=== PATIENT | male | born 1950 | race Two or more races ===

== ENCOUNTER 2017-03-06 08:51 | Day surgery (SDC) | payer OTHER ==
[2017-03-05 14:45] VITALS: BMI 34.1
[2017-03-06 10:07] VITALS: TEMP 97.5
[2017-03-06 10:50] VITALS: BP 114/63; PULSE 82
--- NOTE | 2017-03-07 13:00 | PATH ---
Surgical Pathology Report Patient Name: CHELSEA SOLANO [facility]. Rec. #: [id number] /Age/Gender: 1950 (Age: 66) / M Account: [id number] Location: U-ENDOSCOPY Taken: 03/06/2017 Received: 03/06/2017 Reported: 03/07/2017 Physicians: Stephan Lin M.D. Specimen(s) Received A: RT COLON POLYP B: TRANSVERSE COLON POLYP Clinical History History of colon polyp Diverticulosis, polyp Final Diagnosis A. COLON, RIGHT, POLYP, POLYPECTOMY: CONSISTENT WITH INFLAMMATORY-TYPE POLYP. B. COLON, TRANSVERSE, POLYP, POLYPECTOMY: FRAGMENTS OF HYPERPLASTIC-TYPE POLYP WITH FOCAL FEATURES SUGGESTIVE OF SESSILE SERRATED ADENOMA. Electronically Signed Viktor Maldonado M.D. Gross Description A. Received in formalin, labeled "right colon polyp" is a levy, irregular portion of soft tissue measuring 0.1 cm in greatest dimension. The specimen is submitted in toto in one cassette. B. Received in formalin, labeled "polyp transverse colon" are 2 levy, irregular portions of soft tissue measuring 0.3 and 0.4 cm in greatest dimension. The specimens are submitted in toto in one cassette. 03/06/2017 saudi03/06/2017
== END 2017-03-06 10:50 | disposition home or self-care (01) ==
LOC: JASU-ENDO 08:51
PROVIDERS: ATTEND Internal Medicine Gastroenterology
PROC: 0DBL8ZX Excision of Transverse Colon, Via Natural or Artificial Opening Endoscopic, Diagnostic (ICD-10-PCS; 2017-03-06)
PROC: 0DBF8ZX Excision of Right Large Intestine, Via Natural or Artificial Opening Endoscopic, Diagnostic (ICD-10-PCS; principal; 2017-03-06 09:30)
DX: Z12.11 Encounter for screening for malignant neoplasm of colon (principal); Z86.010 Personal history of colon polyps; D12.3 Benign neoplasm of transverse colon; K63.5 Polyp of colon; K57.30 Diverticulosis of large intestine without perforation or abscess without bleeding
CPT/HCPCS: 36415; 84132; 88305-TC